=== PATIENT | male | born 1970 | race Caucasian/White ===

== ENCOUNTER 2023-03-01 21:15 | Emergency (ER) | payer SELFPAY ==
[~2023-03-01] VITALS: Ht 162.6 cm; Wt 86.2 kg
--- NOTE | 2023-03-01 21:54 | NUR ---
SWABS OBTAINED, SENT TO LOBBY FOLLOWING TRIAGE
--- NOTE | 2023-03-01 22:23 | NUR ---
PT TO BED 5
--- NOTE | 2023-03-01 22:33 | NUR ---
52YR OLD MALE BIB SELF C/O FLU LIKE SX . PT STATES HAVING A HEADACHE THROAT PAIN X2DAYS. +FEVER +COUGH +VOMITING. PT STATES HAVING SX FOR 2DAYS. DENIES SOB OR CP. PT IS THAI SPEAKING NKDA NO MED HX
--- NOTE | 2023-03-01 22:46 | NUR ---
PATIENT LEFT WITHOUT BEING SEEN BY DR. ARREGUIN. NO FURTHER CARE PROVIDED FOR PATIENT.
== END 2023-03-01 22:46 | disposition left against medical advice (07) ==
LOC: MED 21:15
DX: R50.9 Fever, unspecified (principal); R51.9 Headache, unspecified; R09.89 Other specified symptoms and signs involving the circulatory and respiratory systems; Z20.822 Contact with and (suspected) exposure to COVID-19; Z53.21 Procedure and treatment not carried out due to patient leaving prior to being seen by health care provider
CPT/HCPCS: 99281